=== PATIENT | female | born 1950 | race Caucasian/White ===

== ENCOUNTER 2019-04-02 19:51 | Emergency (ER) | payer MEDICARE, OTHER ==
[~2019-04-02] VITALS: Ht 162.6 cm; Wt 95.3 kg
[2019-04-02] MEDS ORDERED: AMOXICILLIN/CLAVULANATE K 875 MG TAB PO STA (19:53)
[2019-04-02] MEDS ORDERED: TETANUS/DIPHTHERIA TOX ADULT 0.5 ML SYR IM ONE (20:00)
--- NOTE | 2019-04-02 20:36 | Diagnostic Imaging Report ---
HUMERUS LEFT 2+VIEWS - 2 views HISTORY: Pain COMPARISON: None available. FINDINGS: Bones: No acute displaced fracture. Osseous alignment is within normal limits. Joints: The joint spaces are well-maintained. Soft tissues: The soft tissues appear unremarkable. IMPRESSION: No acute radiographic abnormality. Signed by: Dr. Bhavin Yates MD on 04/02/2019 8:33 PM
--- NOTE | 2019-04-02 20:39 | NUR ---
SILVERIO HAWKINS IN TRIAGE WITH PT; WOUNDS CLEANED AND STERI STRIPS APPLIED TO WOULD ON RT ELBOW; BACITRACIN APPLIED TO SUPERFICIAL WOUNDS;
--- NOTE | 2019-04-02 20:40 | Diagnostic Imaging Report ---
ELBOW RIGHT COMPLETE - 3 views HISTORY: Pain COMPARISON: None available. FINDINGS: No acute displaced fracture. Osseous alignment is within normal limits. The soft tissues appear unremarkable. IMPRESSION: No acute radiographic abnormality. Signed by: Dr. Bhavin Yates MD on 04/02/2019 8:36 PM
--- NOTE | 2019-04-02 20:54 | NUR ---
ANIMAL CONTROL CONTACTED AND SPOKE WITH OFFICER HERI; OFFICER HERI STATES HE ALREADY HAS AN OPEN CASE THE SON OF PT ALREADY CALLED; STATES ANIMAL CONTROL WITH FOLLOW UP AT PT'S HOME ADDRESS
[2019-04-03] MEDS ORDERED: NEOMYCIN/POLYMYX/BACITR OINT 0.9 GM PKT TOP SCH (09:00)
== END 2019-04-02 20:45 | disposition home or self-care (01) ==
LOC: ER 19:51
DX: S51.031A Puncture wound without foreign body of right elbow, initial encounter (principal); S41.132A Puncture wound without foreign body of left upper arm, initial encounter; W54.0XXA Bitten by dog, initial encounter; Y92.008 Other place in unspecified non-institutional (private) residence as the place of occurrence of the external cause
CPT/HCPCS: 90714; 99283

== ENCOUNTER 2019-12-20 02:27 | Emergency (ER) | payer MEDICARE, OTHER ==
[~2019-12-20] VITALS: Ht 162.6 cm; Wt 95.3 kg
[2019-12-20] MEDS ORDERED: MORPHINE SULFATE INJ 4 MG/ML INJ 1ML IV STA (02:31)
[2019-12-20] MEDS ORDERED: ONDANSETRON HCL INJ 2MG/ML 2ML 2 MG/ML VIAL IV STA (02:31)
--- NOTE | 2019-12-20 02:34 | Emergency Department Note ---
History of Present Illnes History of Present Illness History of Present Illness This is a 69 year old female with substernal CP pressure which radiates to her left arm. (+) SOB and nausea. . Historian: Patient Arrival Mode: Car Carrier Operator Required: No Onset (how long ago): day(s) (1) Location: substernal Radiation: Reports extremity Severity: moderate Onset quality: gradual Duration (how long): day(s) (1) Timing of current episode: constant Progression: worsening Chronicity: new Relieving factors: none Exacerbating factors: none Associated symptoms: Reports chest pain, Reports nausea/vomiting, Reports shortness of breath Treatments prior to arrival: aspirin Past Medical/Family History Physician Review I have reviewed the patient's past medical and family history. Any updates have been documented here. Social History Smoking Cessation: Never Smoker Alcohol Use: None Any Illegal Drug Use: No Review of Systems Review of Systems Constitutional: Reports no symptoms EENTM: Reports no symptoms Cardiovascular: Reports chest pain Respiratory: Reports dyspnea Gastrointestinal: Reports nausea Genitourinary: Reports no symptoms Musculoskeletal: Reports no symptoms Integumentary: Reports no symptoms Neurological: Reports no symptoms Psychological: Reports no symptoms Endocrine: Reports no symptoms Hematological/Lymphatic: Reports no symptoms Physical Exam Related Data Allergies: Coded Allergies: No Known Allergies (Unverified , 04/02/19) Physical Exam CONSTITUTIONAL Constitutional: Present well-developed, Present well-nourished, Present obese HENT HENT: Present normocephalic, Present atraumatic, Present oropharynx clear/moist, Present nose normal HENT L/R: Present left ext ear normal, Present right ext ear normal EYES Eyes: Reports PERRL, Reports conjunctivae normal NECK Neck: Present ROM normal PULMONARY Pulmonary: Present effort normal, Present breath sounds normal CARDIOVASCULAR Cardiovascular: Present regular rhythm, Present heart sounds normal, Present capillary refill normal, Present normal rate, Present tachycardia GASTROINTESTINAL Abdominal: Present soft, Present nontender, Present bowel sounds normal GENITOURINARY Genitourinary: Present exam deferred SKIN Skin: Present warm, Present dry MUSCULOSKELETAL Musculoskeletal: Present ROM normal NEUROLOGICAL Neurological: Present alert, Present oriented x 3, Present no gross motor or sensory deficits PSYCHOLOGICAL Psychological: Present mood/affect normal, Present judgement normal Results Laboratory Lab results reviewed: Yes Laboratory comments Laboratory Tests Test 12/20/19 02:38 White Blood Count 6.39 x10e3/uL (4.8-10.8) Red Blood Count 4.79 x10e6/uL (3.6-5.1) Hemoglobin 13.2 g/dL (12.0-16.0) Hematocrit 41.1 % (34.2-44.1) Mean Corpuscular Volume 85.8 fL (81-99) Mean Corpuscular Hemoglobin 27.6 pg (28-32) Mean Corpuscular Hemoglobin Concent 32.1 g/dL (31-35) Red Cell Distribution Width 14.0 % (11.7-14.4) Platelet Count 221 x10e3/uL (140-360) Neutrophils (%) (Auto) 49.3 % (38.7-80.0) Lymphocytes (%) (Auto) 38.5 % (18.0-39.1) Monocytes (%) (Auto) 9.9 % (4.4-11.3) Eosinophils (%) (Auto) 1.4 % (0.0-6.0) Basophils (%) (Auto) 0.6 % (0.0-1.0) Neutrophils # (Auto) 3.2 (2.1-6.9) Lymphocytes # (Auto) 2.5 (1.0-3.2) Monocytes # (Auto) 0.6 (0.2-0.8) Eosinophils # (Auto) 0.1 (0.0-0.4) Basophils # (Auto) 0.0 (0.0-0.1) Absolute Immature Granulocyte (auto 0.02 x10e3/uL (0-0.1) Activated Partial Thromboplast Time 28.3 seconds (23.8-35.5) Sodium Level 141 mmol/L (136-145) Potassium Level 3.8 mmol/L (3.5-5.1) Chloride Level 105 mmol/L (98-107) Carbon Dioxide Level 23 mmol/L (22-29) Anion Gap 16.8 mmol/L (8-16) Blood Urea Nitrogen 27 mg/dL (7-26) Creatinine 1.02 mg/dL (0.57-1.11) Estimat Glomerular Filtration Rate 54 ML/MIN (60-) BUN/Creatinine Ratio 26 (6-25) Glucose Level 146 mg/dL (74-118) Calcium Level 9.9 mg/dL (8.4-10.2) Total Bilirubin 0.5 mg/dL (0.2-1.2) Aspartate Amino Transf (AST/SGOT) 23 IU/L (5-34) Alanine Aminotransferase (ALT/SGPT) 24 IU/L (0-55) Alkaline Phosphatase 83 IU/L (40-150) Creatine Kinase 69 IU/L (29-168) Creatine Kinase MB 1.40 ng/mL (0-5.0) Troponin I 0.001 ng/mL (0-0.300) B-Type Natriuretic Peptide 42.1 pg/mL (0-100) Total Protein 7.1 g/dL (6.5-8.1) Albumin 4.0 g/dL (3.5-5.0) Globulin 3.1 g/dL (2.3-3.5) Albumin/Globulin Ratio 1.3 (0.8-2.0) Imaging Imaging results reviewed: Yes Impressions [place] [id number] Patient Name: JAYE MAHAN MR #: [id number] : 1950 Age/Sex: 69/F Req #: [id number] Adm Physician: Ordered by: MELISSA CASH DO Report #: [id number] Location: ER Room/Bed: Procedure: [id number] DX/CHEST SINGLE (PORTABLE) Exam Date: 12/20/19 Exam Time: 032 REPORT STATUS: Signed EXAMINATION: CHEST SINGLE (PORTABLE) INDICATION: Chest pain COMPARISON: None FINDINGS: TUBES and LINES: None. LUNGS: Normal lung volumes. Lungs are clear. Prominent central pulmonary vasculature. PLEURA: No pleural effusion or pneumothorax. HEART AND MEDIASTINUM: The cardiomediastinal silhouette is unremarkable. BONES AND SOFT TISSUES: No acute osseous lesion. Soft tissues are unremarkable. UPPER ABDOMEN: No free air under the diaphragm. IMPRESSION: Pulmonary vascular congestion. Signed by: Atif Clayton DO on 12/20/2019 4:59 AM Dictated By: ATIF CLAYTON DO 8 Transcribed By: SHANNA on 12/20/19458 COPY TO: MELISSA CASH DO~ Procedures 12 Lead ECG Interpretation ECG Interpretation : ECG: ECG 1 Carrier Operator: Interpreted by ED physician Date: Dec 20, 2019 Time: 02:32 Prior ECG tracings: reviewed Rhythm: sinus rhythm ST segments normal: Yes T waves normal: Yes Clinical Impression: abnormal ECG Additional Comments tachy/carlos arrythmia Critical Care Time Total Critical Care Time (min): 31 Critcal care necessary due to: cardiac failure Critcal care time spent by me: blood dram for specimens, develop tx plan w p atient/surrogate, discussion w consultants, discussion w primary provider, evaluation patient response to tx, examination of patient, obtaining hx from patient/surrogate, order/perform tx or interventions, order/review laboratory studies, order/review radiographic studies, pulse oximetry, review of old charts Comments Discussed case with Dr Pizarro, who evaluated patient at bedside Assessment & Plan Medical Decision Making MDM 69 yof with new onset of atrial fibrillation with RVR with rate of 140's with occassional sinus pauses of HR 60 BPM. Patient started on cardizem gtt per orders of Dr Pizarro. Patient to be transferred to [facility] and accepted by Dr Benton. Reassessment Reassessment time: 03:10 Reassessment S/W Cardiology Dr Pizarro, EKG discussed. Recommend cardizem gtt 2 mg / hour Assessment & Plan Final Impression: (1) Atrial fibrillation with RVR (2) Chest pain (3) Sick sinus syndrome Depart Disposition: TRANS TO OTHER [facility] FAC[facility] Home Meds Reported Medications Cholecalciferol (Vitamin D3) (Vitamin D3) 10 Mcg Capsule 12/20/19 [place]-3 Fatty Acids/Fish Oil (FISH OIL 1,000 MG SOFTGEL) 1 Each Capsule 12/20/19 Vitamin E Mixed (VITAMIN E) 400 Unit Capsule, 800 UNIT PO DAILY 12/20/19 Aspirin (ASPIRIN) 81 Mg Tab.chew, 81 MG PO DAILY 12/20/19 Nitroglycerin (NITROGLYCERIN) 0.4 Mg Tab.subl 12/20/19 Atenolol (ATENOLOL) 100 Mg Tablet, 100 MG PO DAILY 12/20/19 Sertraline Hcl (SERTRALINE HCL) 100 Mg Tablet, 100 MG PO DAILY 12/20/19 Atorvastatin Calcium (ATORVASTATIN CALCIUM) 10 Mg Tablet, 10 MG PO HS 12/20/19 Levothyroxine Sodium (LEVOTHYROXINE SODIUM) 88 Mcg Tablet, 88 MCG PO DAILY 12/20/19 Omeprazole (OMEPRAZOLE) 20 Mg Capsule.dr, 20 MG PO DAILY 12/20/19 Amlodipine Besylate (AMLODIPINE BESYLATE) 2.5 Mg Tablet, 2.5 MG PO DAILY 12/20/19 Medications in the ED Morphine Sulfate 4 mg ONCE STAT IV ; Start 12/20/19 at 02:31; Stop 12/20/19 at 02:38; Status DC Ondansetron HCl 4 mg ONCE STAT IV Last administered on 12/20/19at 02:47; Admin Dose 4 MG; Start 12/20/19 at 02:31; Stop 12/20/19 at 02:38; Status DC Aspirin 81 mg PRN ONCE PO Last administered on 12/20/19at 02:48; Admin Dose 162 MG; Start 12/20/19 at 02:45; Stop 12/20/19 at 02:46; Status DC Diltiazem HCl 125 ml @ 0 mls/hr TITRATE STAT IV Last administered on 12/20/19at 03:07; Admin Dose 5 MLS/HR; Start 12/20/19 at 02:41; Stop 12/20/19 at 02:43; Status DC Diltiazem HCl 5 mg NOW STAT IV Last administered on 12/20/19at 02:50; Admin Dose 5 MG; Start 12/20/19 at 02:41; Stop 12/20/19 at 02:47; Status DC Digoxin 0.25 mg ONCE ONCE IV Last administered on 12/20/19at 02:58; Admin Dose 0.25 MG; Start 12/20/19 at 02:45; Stop 12/20/19 at 02:47; Status DC Aspirin 162 mg STK-MED ONCE .ROUTE ; Start 12/20/19 at 03:00; Stop 12/20/19 at 02:54; Status DC Aspirin 243 mg ONCE STAT PO Last administered on 12/20/19at 02:53; Admin Dose 243 MG; Start 12/20/19 at 02:55; Stop 12/20/19 at 02:57; Status DC Diltiazem HCl 125 mg STK-MED ONCE .ROUTE ; Start 12/20/19 at 03:08; Stop 12/20/19 at 03:02; Status DC Sodium Chloride 100 ml @ ud STK-MED ONCE .ROUTE ; Start 12/20/19 at 03:08; Stop 12/20/19 at 03:02; Status DC Enoxaparin Sodium 60 mg NOW STAT SC Last administered on 12/20/19at 04:33; Admin Dose 60 MG; Start 12/20/19 at 04:15; Stop 12/20/19 at 04:16; Status MELISSA BLANK DO Dec 20, 2019 02:34
--- NOTE | 2019-12-20 02:40 | NUR ---
NOTED SIGNIFICANT DIFFERENCES IN UE BP- SEE VITALS DOCUMENTATION, INFORMED ED MD, PENDING FURTHER ORDERS.
[2019-12-20] MEDS ORDERED: DILTIAZEM HCL 125 ML IV STA (02:41)
[2019-12-20] MEDS ORDERED: DILTIAZEM HCL 5 MG/ML 5 ML VIAL IV STA (02:41)
[2019-12-20] MEDS ORDERED: DIGOXIN INJ 0.25 MG/ML 2 ML AMP IV ONE (02:45)
[2019-12-20] MEDS ORDERED: ASPIRIN 81 MG CHEW TAB PO ONE (02:45)
--- NOTE | 2019-12-20 02:45 | NUR ---
DR. CASH UPDATING PATIENT ON POC AND ICU DISPO ADMISSION FOR TX AT THIS TIME, MADE AWARE OF CURRENT BED STATUS AT THIS FACILITY, INFORMED OF POSSIBILITY OF TRANSFER TO OTHER FACILITY FOR CONTINUITY OF CARE, PT ACKNOWLEDGES UNDERSTANDING.
[2019-12-20 02:55] LABS: BASOPHILS % 0.6 % (0.0-1.0); EOSINOPHILS # (AUTO) 0.1 (0.0-0.4); EOSINOPHILS % 1.4 % (0.0-6.0); HEMATOCRIT 41.1 % (34.2-44.1); HEMOGLOBIN 13.2 g/dL (12.0-16.0); LYMPHOCYTES # (AUTO) 2.5 (1.0-3.2); LYMPHOCYTES % 38.5 % (18.0-39.1); MEAN CORPUSCULAR HEMOGLOBIN 27.6 pg (28-32); MEAN CORPUSCULAR HGB CONC 32.1 g/dL (31-35); MEAN CORPUSCULAR VOLUME 85.8 fL (81-99); MONOCYTES # (AUTO) 0.6 (0.2-0.8); MONOCYTES % 9.9 % (4.4-11.3); NEUTROPHILS # (AUTO) 3.2 (2.1-6.9); NEUTROPHILS % 49.3 % (38.7-80.0); PLATELET COUNT 221 x10e3/uL (140-360); RED BLOOD COUNT 4.79 x10e6/uL (3.6-5.1)
[2019-12-20] MEDS ORDERED: ASPIRIN 81 MG CHEW TAB PO STA (02:55)
[2019-12-20] MEDS ORDERED: ASPIRIN 81 MG CHEW TAB ONE (03:00)
[2019-12-20] MEDS ORDERED: SODIUM CHLORIDE 0.9% 100 ML ONE (03:08)
[2019-12-20] MEDS ORDERED: DILTIAZEM HCL IV 5MG/ML 25 ML VIAL ONE (03:08)
[2019-12-20 03:16] LABS: ALBUMIN/GLOBULIN RATIO 1.3 (0.8-2.0); ANION GAP 16.8 mmol/L (8-16); CALCIUM 9.9 mg/dL (8.4-10.2); CREATININE, SERUM 1.02 mg/dL (0.57-1.11); POTASSIUM 3.8 mmol/L (3.5-5.1)
[2019-12-20 03:23] LABS: CREATINE KINASE MB 1.4 ng/mL (0-5.0)
--- NOTE | 2019-12-20 03:57 | NUR ---
DR. KADY GONZALEZ ARRIVED AT BEDSIDE FOR PT EVAL AT THIS TIME PER PT REQUEST, WAS MADE AWARE OF PT CASE AND STATUS BY DR. CASH
--- NOTE | 2019-12-20 04:08 | NUR ---
DILTIAZEM TITRATED TO 5 MG/ML AT THIS TIME PER REQUEST OF DR. GONZALEZ WHOM REMAINS AT BEDSIDE AT THIS TIME.
[2019-12-20] MEDS ORDERED: ATENOLOL100 MG PO (04:15)
[2019-12-20] MEDS ORDERED: AMLODIPINE BES2.5 MG PO (04:15)
[2019-12-20] MEDS ORDERED: SERTRALINE HCL100 MG PO (04:15)
[2019-12-20] MEDS ORDERED: NITROGLYCERIN0.4 MG (04:15)
[2019-12-20] MEDS ORDERED: ATORVASTATIN CA10 MG PO (04:15)
[2019-12-20] MEDS ORDERED: LEVOTHYROXINE88 MCG PO (04:15)
[2019-12-20] MEDS ORDERED: ENOXAPARIN SOD INJ 60 MG/0.6 ML SYR SC STA (04:15)
[2019-12-20] MEDS ORDERED: OMEPRAZOLE20 MG PO (04:15)
[2019-12-20 04:16] VITALS: BP 103/83
--- NOTE | 2019-12-20 04:16 | NUR ---
DILTIAZEM TITRATED TO 8 MG/HR PER ORDERS FROM DR. GONZALEZ WHOM REMAINS AT BEDSIDE, FURTHER ORDERING LOVENOX- WILL GIVE.
[2019-12-20] MEDS ORDERED: VITAMIN E400 UNI1 PO (04:17)
[2019-12-20] MEDS ORDERED: ASPIRIN81 MG PO (04:17)
[2019-12-20] MEDS ORDERED: VITAMIN D310 MCG (04:19)
[2019-12-20] MEDS ORDERED: FISH OIL 1,0001 EAC3 (04:19)
--- NOTE | 2019-12-20 04:41 | NUR ---
RECEIVED CALL FROM [facility], INFORMED THAT PT DENIED TRANSFER DUE TO BEING AT CAPACITY, INFORMED SURVEILLANCE INVESTIGATOR.
--- NOTE | 2019-12-20 04:48 | NUR ---
ACCEPTANCE AT [facility] 8B ICU 26
--- NOTE | 2019-12-20 05:02 | Diagnostic Imaging Report ---
EXAMINATION: CHEST SINGLE (PORTABLE) INDICATION: Chest pain COMPARISON: None FINDINGS: TUBES and LINES: None. LUNGS: Normal lung volumes. Lungs are clear. Prominent central pulmonary vasculature. PLEURA: No pleural effusion or pneumothorax. HEART AND MEDIASTINUM: The cardiomediastinal silhouette is unremarkable. BONES AND SOFT TISSUES: No acute osseous lesion. Soft tissues are unremarkable. UPPER ABDOMEN: No free air under the diaphragm. IMPRESSION: Pulmonary vascular congestion. Signed by: Atif Clayton DO on 12/20/2019 4:59 AM
--- NOTE | 2019-12-20 05:30 | NUR ---
REPORT GIVEN TO RENETTA SAMANIEGO FOR BED ASSIGNED AT [facility] 8 B ICU 26, ALL QUESTIONS ANSWERED AND CONCERNS ADDRESSED, PENDING [facility] ARRIVAL AT THIS TIME.
--- NOTE | 2019-12-20 06:07 | Consultation ---
DATE OF CONSULTATION: 12/20/2019 The patient was seen for Dr. Luis Pate, the emergency room physician. HISTORY OF PRESENT ILLNESS: This 69-year-old patient presented to the emergency room complaining of tightness and heaviness in her chest, radiating to the left arm. The patient also has some sensation of fluttering and quivering in her chest. The patient was found to have paroxysmal episodes of rapid atrial flutter and atrial fibrillation interrupted by sinus rhythm, usually preceded by sinus pauses up to 2 seconds, which caused some dizziness and the patient stated that she feels like she is passing out when the pauses were over 2 seconds. The patient apparently took atenolol 100 mg at midnight, it is for the evening medication, but then when her chest discomfort started, she was taken to the emergency room by her daughter. PAST MEDICAL HISTORY: Reveals that she had history of coronary artery disease with previous cardiac catheterization and history of hypertension. The patient also has a long history of hypothyroidism and recently her medication apparently had been adjusted appropriately by her PCP. SOCIAL HISTORY: Negative. For her medications and additional past history refer to the EMR. REVIEW OF SYSTEMS: The patient's systems review reveals that she denies any headache or sore throat. The patient denies any fever. The patient has some mild shortness of breath. The patient denies any abdominal pain. No nausea, vomiting, diarrhea, hematemesis, or melena. The patient denies any leg swelling or leg pain. PHYSICAL EXAMINATION: VITAL SIGNS: Reveals varying blood pressure between 130/90 and at times 85/60 depending on the pattern of her rhythm. The higher blood pressure is usually recorded during sinus rhythm and the top of the blood pressure is noted with rapid atrial fibrillation. NECK: Carotid pulses are present. There are no vascular bruits. CHEST: Clear to auscultation. CARDIOVASCULAR: Normal apical impulse. The rhythm is irregular. ABDOMEN: Soft. There is no tenderness or organomegaly. EXTREMITIES: Pulses are present. There is no peripheral edema. Homans' sign is negative. NEUROLOGIC: Does not reveal any motor defect. IMPRESSION AND PLAN: 1. Sick sinus syndrome with paroxysmal atrial flutter and fibrillation with rapid ventricular rate and sinus pauses. 2. Hypertension. 3. Hypothyroidism. The patient has been given 0.25 mg of digoxin IV and at the present time, the patient is on Cardizem drip, which was started at 2 mg and then up to 5 mg/hour. At the present time, it is 8 mg/hour. The patient will need to be closely monitored in the Intensive Care Unit. With no bed available at this institution, transfer arrangement to [facility] has been initiated and the patient may need temporary or maybe even a permanent pacemaker for pursuing additional antiarrhythmic medications. This was relayed to the patient. She also received 60 mg of Lovenox subcu prior to her transfer arrangements. Miquel Pizarro MD [facility] /[id number]
--- NOTE | 2019-12-20 06:15 | NUR ---
BEDSIDE REPORT PROVIDED TO [facility]; DR. CASH AT BEDSIDE, RECEIVED ORDERS TO STOP CARDIZEM DRIP PATIENT HAVING FREQUENT PAUSES, [facility] MADE AWARE AND WILL RELAY MESSAGE TO RECEIVING FACILITY.
== END 2019-12-20 06:20 | disposition other institution (70) ==
LOC: ER 02:27
DX: R07.9 Chest pain, unspecified (principal); R06.02 Shortness of breath; R11.0 Nausea; I48.20 Chronic atrial fibrillation, unspecified; I49.5 Sick sinus syndrome
CPT/HCPCS: 36415; 71045; 80053; 82550; 82553; 83880; 84484; 85025; 85730; 93005; 99284; J1160; J1650; J2405; J7050; J2270

== ENCOUNTER → 2020-01-19 | Outpatient (CLI) | payer MEDICARE, OTHER ==
[~2020-01-19] MED LIST: AMLODIPINE BES2.5 MG PO; ASPIRIN81 MG PO; ATENOLOL100 MG PO; ATORVASTATIN CA10 MG PO; FISH OIL 1,0001 EAC3; LEVOTHYROXINE88 MCG PO; NITROGLYCERIN0.4 MG; OMEPRAZOLE20 MG PO; SERTRALINE HCL100 MG PO; VITAMIN D310 MCG; VITAMIN E400 UNI1 PO
--- NOTE | 2020-01-19 14:18 | Diagnostic Imaging Report ---
Perfusion Lung Scan NOTE: Lung ventilation studies with xenon are not being performed per the recommendation of the Society of Nuclear Medicine and Molecular Imaging. It is not possible to be certain that the ventilation system is adequately disinfected. Ventilation studies with Tc-99m DTPA particles is contraindicated because the delivery by nebulization generates too many water droplets from the patient's airway. Clinical Information: 70 F status post cardiac ablation 01/04/2020 for atrial fibrillation and PE 01/06/2020 in [place] on chest CT PE protocol at [facility]. Comparison: Chest radiograph 12/20/2019; don't have access to images from CT chest PE protocol. 01/06/2020 at [facility], just report. Discussion: Ventilation images were not obtained. See note above. Perfusion images of the lungs were obtained in multiple projections following intravenous administration of approximately 5 mCi of Tc-99m MAA. The volume of the right lung is reduced. There appears to be marked elevation of the right hemidiaphragm, although absent perfusion of the RLL could also give this appearance. Distribution of tracer is mildly irregular throughout the lungs. There are no segmental perfusion defects of any size in the left lung, specifically, none in the LION. The cardiomediastinal silhouette is not able to be assessed due to the decreased volume of the right lung. Of note, the right hemidiaphragm does not appear elevated on chest radiograph of 12/20/[address] chest PE protocol does comment on elevated right hemidiaphragm. Impression: Scan findings represent a VERY LOW probability for acute pulmonary embolic disease based on the PIOPED II criteria IN THE LEFT LUNG. In the right lung, a chest x-ray is needed to determine if right hemidiaphragm is significantly elevated. It if is not elevated, then probability of acute PE in the RLL is HIGH. Page placed to Dr. Pizarro at 2:03 pm on 01/19/2020. Signed by: Dr. Lisa Monreal M.D. on 01/19/2020 2:15 PM
--- NOTE | 2020-01-19 16:35 | Diagnostic Imaging Report ---
EXAM: CHEST 2 VIEWS DATE: 01/19/2020 3:45 PM INDICATION: Shortness of breath COMPARISON: 12/20/2019 FINDINGS: The trachea is midline. There is elevation of the right hemidiaphragm and associated compressive atelectasis of the right lower lobe. Minimally increased left basilar atelectasis noted. There is no evidence for large focal consolidation, pneumothorax, or significant pleural effusion. The cardiomediastinal silhouette is within normal limits. Atherosclerotic calcifications are noted within the thoracic aorta. No acute osseous abnormality is identified. IMPRESSION: Elevation of the right hemidiaphragm and associated compressive atelectasis of the right lower lobe. Signed by: Dr. Eldon He MD on 01/19/2020 4:32 PM
== END ==
LOC: NM 11:30
PROVIDERS: ATTEND Internal Medicine Cardiovascular Disease
DX: I26.99 Other pulmonary embolism without acute cor pulmonale (principal); R06.02 Shortness of breath
CPT/HCPCS: 71046; 78597; A9540

== ENCOUNTER → 2020-07-19 | Outpatient (CLI) | payer MEDICARE, OTHER | LOC: RAD 13:42 | PROVIDERS: ATTEND Internal Medicine Pulmonary Disease | DX: J98.6 Disorders of diaphragm (principal) | CPT/HCPCS: 71046 ==

== ENCOUNTER 2022-09-22 17:02 | Emergency (ER) | payer MEDICARE, OTHER ==
[~2022-09-22] VITALS: Ht 162.6 cm; Wt 95.3 kg
[2022-09-22] MEDS ORDERED: DIPHTH/TETANUS/ACEL. PERTUSSIS 0.5 ML SYR IM ONE (17:30)
[2022-09-22 17:32] VITALS: BP 129/70
[2022-09-22] MEDS ORDERED: SODIUM CHLORIDE 0.9% 1000ML 1,000 ML IV STA (17:33)
[2022-09-22 17:39] LABS: BASOPHILS % 0.3 % (0.0-1.0); EOSINOPHILS # (AUTO) 0.1 (0.0-0.4); EOSINOPHILS % 0.8 % (0.0-6.0); HEMATOCRIT 40.2 % (34.2-44.1); HEMOGLOBIN 12.9 g/dL (12.0-16.0); LYMPHOCYTES # (AUTO) 1.3 (1.0-3.2); LYMPHOCYTES % 21.2 % (18.0-39.1); MEAN CORPUSCULAR HGB CONC 32.1 g/dL (31-35); MEAN CORPUSCULAR VOLUME 90.3 fL (81-99); MONOCYTES # (AUTO) 0.4 (0.2-0.8); MONOCYTES % 7.1 % (4.4-11.3); NEUTROPHILS # (AUTO) 4.2 (2.1-6.9); NEUTROPHILS % 70.3 % (38.7-80.0); PLATELET COUNT 217 x10e3/uL (140-360); RED BLOOD COUNT 4.45 x10e6/uL (3.6-5.1); RED CELL DISTRIBUTION WIDTH 13.4 % (11.7-14.4)
[2022-09-22 17:51] LABS: INR 2.52; PROTHROMBIN TIME 27.6 seconds (11.9-14.5)
[2022-09-22 17:58] LABS: ALBUMIN 4.1 g/dL (3.5-5.0); ALBUMIN/GLOBULIN RATIO 1.4 (0.8-2.0); CALCIUM 9.6 mg/dL (8.4-10.2); CREATININE, SERUM 1.1 mg/dL (0.57-1.11)
[2022-09-22 18:04] LABS: CREATINE KINASE MB 1.5 ng/mL (0-5.0)
[2022-09-22] MEDS ORDERED: TETANUS/DIPHTHERIA TOX ADULT 0.5 ML SYR ONE (18:54)
== END 2022-09-22 19:43 | disposition home or self-care (01) ==
LOC: ER 17:16
DX: I95.1 Orthostatic hypotension (principal); S09.90XA Unspecified injury of head, initial encounter; Z79.01 Long term (current) use of anticoagulants; I48.91 Unspecified atrial fibrillation; I10 Essential (primary) hypertension; E03.9 Hypothyroidism, unspecified; E78.5 Hyperlipidemia, unspecified; Z23 Encounter for immunization; W18.39XA Other fall on same level, initial encounter; Y92.89 Other specified places as the place of occurrence of the external cause; Z98.61 Coronary angioplasty status; Z79.82 Long term (current) use of aspirin; Z79.899 Other long term (current) drug therapy; Z86.711 Personal history of pulmonary embolism; Z86.718 Personal history of other venous thrombosis and embolism
CPT/HCPCS: 36415; 70450; 70486; 71045; 72125; 80053; 82550; 82553; 83880; 84484; 85025; 85610; 90471; 90714; 93005; 99284; J7030